=== PATIENT | male | born 1965 | race Caucasian/White ===

== ENCOUNTER → 2019-08-06 12:35 | Outpatient (CLI) | payer BC, SELFPAY ==
--- NOTE | 2019-08-06 12:41 | CT_ITS ---
STUDY: CT TEMPORAL BONES WITHOUT CONTRAST - ATTN: I.A.C. S REASON FOR EXAM: Male, 53 years old. Hearing loss RADIATION DOSAGE (If Supplied By Facility): CTDIvol = ( 67.58 ) mGy, DLP = ( 742.97 ) mGycm TECHNIQUE: The patient was scanned in a multi detector CT scanner. Transaxial imaging was performed without the administration of intravenous contrast material. Sagittal and coronal images were reconstructed. Individualized dose optimization techniques were used for this CT. COMPARISON: None. FINDINGS: RIGHT TEMPORAL BONE Normal right internal auditory canal. Normal visualized ossicles and tympanic cavity. Normal right cochlea and semicircular canals. Normal vestibular aqueduct. Normal right petrous carotid artery. Normal right jugular fossa. Normal right mastoid air cells. Normal right petrous apex. LEFT TEMPORAL BONE Normal left internal auditory canal. Mild thickening of soft tissue along the dawson of the external auditory canal, and upper aspect of the middle ear and around the ossicles. Tympanic membrane however is normal thickness. Findings suggest mild to moderate inflammatory changes. Cholesteatoma is not excluded but there are no destructive changes of the bones. Normal visualized ossicles. Normal left cochlea and semicircular canals. Normal vestibular aqueduct. Normal left petrous carotid artery. Normal right jugular fossa. Normal left mastoid air cells. Normal left petrous apex. CT/Orb Sella Post Fossa Ear w/o IMPRESSION: Normal right auditory structures and temporal bone. Mild probable inflammatory changes, possibly chronic in the left external auditory canal and left middle ear. Electronically Signed: Narayan Calles MD at 17:13 EDT , Service support ,
== END ==
PROVIDERS: Family Provider Physician Assistant Medical; PCP Physician Assistant Medical; Referring Provider Otolaryngology; Visit Provider Otolaryngology
DX: H93.12 Tinnitus, left ear (principal); H92.12 Otorrhea, left ear; H91.92 Unspecified hearing loss, left ear
CPT/HCPCS: 70480